=== PATIENT | female | born 1980 | race Caucasian/White ===

== ENCOUNTER 2016-09-01 19:45 | Emergency (ER) | payer MEDICAID ==
[~2016-09-01] VITALS: Ht 157.5 cm; Wt 66.5 kg
[~2016-09-01 19:45] MED LIST: CIPR500T4 PO; ONDA4TAB8 PO
[2016-09-01 19:48] VITALS: Ht 157.5 cm; Wt 66.5 kg
--- NOTE | 2016-09-01 21:24 | RADRPT ---
PROCEDURE: CT Brain without contrast. CLINICAL INDICATION: headache TECHNIQUE: A CT of the brain was performed on a GE J[employer]Cam 64-slice CT scanner utilizing axial imaging from the skull base through the vertex without IV contrast. Multiplanar reformatted images were made. Images were reviewed on a PACS workstation. The CTDIvol is 44 mGy and the DLP is 720 mG ycm. COMPARISON: None FINDINGS: There is no intracranial hemorrhage, mass effect, or midline shift. No extra-axial fluid collection is seen. The ventricles and sulci are normal in size and configuration. 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 Otherwise, the density of the brain is normal, and the mg white matter differentiation appears well-preserved. T he visualized paranasal sinuses and osseous structures are grossly unremarkable. IMPRESSION: No evidence of acute intracranial pathology. Physician Mel Date Time Electronically viewed and signed by Rodney Carlos Physician on 09/01/2016 21:24 ML/
[2016-09-01] MEDS ORDERED: BUTA1CAP39 PO (21:38)
--- NOTE | 2016-09-01 21:38 | ERD ---
ER Documentation Chief Complaint Date/Time DATE: 09/01/16 TIME: 21:35 Chief Complaint left sided facial pain w/ headache x 2 days HPI 36-year-old female presents to emergency department for complaints of left facial pain left sided headache, for 2 days. Patient described the pain as throbbing pain, 6/10 scale, has been better after taking Advil, worst upon seeing lights. Patient denies any nausea vomiting. Patient denies any numbness or tingling. Patient denies any blurry vision. ROS All systems reviewed and are negative except as per history of present illness. Medications Home Meds Active Scripts Eaeywzrwgbqfe-Hejmmpthas-Jzlzsiwa-Codeine* (Fioricet w/ Codeine*) [id number]- 30MG Capsule, 1 CAP PO Q6H Y for PAIN LEVEL 1-5, #20 CAP Prov:MELINA MANCINI RESIDENTIAL SUPERVISOR 09/01/16 Ondansetron Hcl* (Zofran*) 4 Mg Tablet, 4 MG PO Q6H for NAUSEA AND/OR VOMITING, #10 TAB Prov:WILLIAM MARTEL MD 11/16/15 Ciprofloxacin Hcl* (Ciprofloxacin Hcl*) 500 Mg Tablet, 500 MG PO BID for 3 Days , TAB Prov:WILLIAM MARTEL MD 11/16/15 Allergies Allergies: Coded Allergies: No Known Allergy (Unverified , 11/16/15) PMhx/Soc History of Surgery: No Hx Neurological Disorder: No Hx Respiratory Disorders: Yes (asthma) Hx Cardiac Disorders: No Hx Psychiatric Problems: No Hx Miscellaneous Medical Probl: No Hx Alcohol Use: No Hx Substance Use: No Hx Tobacco Use: No Smoking Status: Never smoker FmHx Family History: No coronary disease, No diabetes, No other Physical Exam Vitals Vital Signs Date Time Temp Pulse Resp B/P Pulse Ox O2 Delivery O2 Flow Rate FiO2 09/01/16 19:48 97.8 81 20 138/67 99 Physical Exam GENERAL: The patient is well developed and appropriate for usual state of health, in no apparent distress. CHEST: Clear to auscultation bilaterally. There are no rales, wheezes or rhonchi. HEART: Regular rate and rhythm. No murmurs, clicks, rubs or gallops. No S3 or S4. ABDOMEN: Soft, nontender and nondistended. Good bowel sounds. No rebound or guarding. No gross peritonitis. No gross organomegaly or masses. No Nazario sign or McBurney point tenderness. BACK: No midline or flank tenderness. EXTREMITIES: Equal pulses bilaterally. There is no peripheral clubbing, cyanosis or edema. No focal swelling or erythema. Full range of motion. Grossly neurovascularly intact. NEURO: Alert and oriented. Cranial nerves 2-12 intact. Motor strength in all 4 extremities with 5/5 strength. Sensation grossly intact. Normal speech and gait. Negative Romberg sign. Negative pronator drift. Bilateral eyes are PERRL EOM intact. SKIN: There is no apparent rash or petechia. The skin is warm and dry. HEMATOLOGIC AND LYMPHATIC: There is no evidence of excessive bruising or lymphedema. No gross cervical, axillary, or inguinal lymphadenopathy. Results 24 hrs Current Medications Medications (Trade) Dose Ordered Sig/Argenis Route PRN Reason Start Time Stop Time Status Last Admin Dose Admin Acetam/Butalbital/ Caffeine/Codeine (Fioricet/ Codeine) 1 cap ONCE ONCE PO 09/01/16 22:00 09/01/16 22:01 Patient was given medication for pain here in emergency department, after treatment, patient verbalized feeling much better. Patient's pain is improved. PROCEDURE: CT Brain without contrast. CLINICAL INDICATION: headache TECHNIQUE: A CT of the brain was performed on a [employer] 64-slice CT scanner utilizing axial imaging from the skull base through the vertex without IV contrast. Multiplanar reformatted images were made. Images were reviewed on a PACS workstation. The CTDIvol is 44 mGy and the DLP is 720 mGycm. COMPARISON: None FINDINGS: There is no intracranial hemorrhage, mass effect, or midline shift. No extra- axial fluid collection is seen. The ventricles and sulci are normal in size and configuration. 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 Otherwise, the density of the brain is normal, and the mg white matter differentiation appears well- preserved. The visualized paranasal sinuses and osseous structures are grossly unremarkable. IMPRESSION: No evidence of acute intracranial pathology. Rodney Lalezarian, Physician Date Time Electronically viewed and signed by Rodney Carlos Physician on 09/01/2016 21 :24 ML/ CC: MELINA MANCINI NP Procedures/MDM Medical Decision Making: Patient's symptoms of headache most likely is consistent with tension headache or migraine headache. There is low suspicion for neurological emergencies at this time since patients neurologic exam is normal. Patient did not have any altered level consciousness, vomiting, changes in balance or memory and did not have any head injury. Patients CT scan of the head does not show any neurological emergencies at this time. Patient was given for Fioricet with codeine, is advised to follow-up with primary care doctor in 1 -2 days for reevaluation and symptoms, see neurology specialist if symptoms continues to persist. Patient is advised to return to emergency department for any worsening symptoms. Departure Diagnosis: Primary Impression: Headache Headache type: unspecified Headache chronicity pattern: acute headache Intractability: not intractable Qualified Code: R51 - Acute nonintractable headache, unspecified headache type Condition: Stable Patient Instructions: Self-Care for Headaches Additional Instructions: Patient was given for Fioricet with codeine, is advised to follow-up with primary care doctor in 1-2 days for reevaluation and symptoms, see neurology specialist if symptoms continues to persist. Patient is advised to return to emergency department for any worsening symptoms. MELINA MANCINI NP September 01, 2016 21:38
[2016-09-01] MEDS ORDERED: ACET/BUTAL/CAFF/CODEINE CAP PO ONE (22:00)
== END 2016-09-01 22:37 | disposition home or self-care (01) ==
LOC: FTE 19:45
DX: R51 Headache (principal); J45.909 Unspecified asthma, uncomplicated
CPT/HCPCS: 70450; Z7610

== ENCOUNTER 2018-10-01 23:03 | Emergency (ER) | payer MEDICAID ==
[~2018-10-01] VITALS: Ht 165.1 cm; Wt 68.8 kg
[~2018-10-01 23:03] MED LIST changes: +BUTA1CAP39 PO
[2018-10-01 23:07] VITALS: BP 124/76; PULSE 84; RESP 18; Ht 165.1 cm; Wt 68.8 kg
[2018-10-02] MEDS ORDERED: IBUPROFEN 600 MG TAB PO ONE (00:30)
[2018-10-02] MEDS ORDERED: IBUP-1542 PO (02:43)
--- NOTE | 2018-10-02 02:45 | ERD ---
ER Documentation Chief Complaint Chief Complaint right upper abd pain, glf this am, hit right side against corner table HPI 38-year-old female presents with right lower rib pain after slipping and falling into the toilet this morning. She denies hemoptysis, head injury, neck pain, shortness of breath, abdominal pain, vomiting. ROS All systems reviewed and are negative except as per history of present illness. Medications Home Meds Active Scripts Ibuprofen* (Motrin*) 600 Mg Tab, 600 MG PO Q6, #20 TAB Prov:LUPIS NESS MD 10/02/18 Xysbrwbaotmgn-Ajegnasqci-Jwlgdaua-Codeine* (Fioricet w/ Codeine*) [id number] Capsule, 1 CAP PO Q6H PRN for PAIN LEVEL 1-5, #20 CAP Prov:MELINA MANCINI NP 09/01/16 Ondansetron Hcl* (Zofran*) 4 Mg Tablet, 4 MG PO Q6H for NAUSEA AND/OR VOMITING, #10 TAB Prov:WILLIAM MARTEL MD 11/16/15 Ciprofloxacin Hcl* (Ciprofloxacin Hcl*) 500 Mg Tablet, 500 MG PO BID for 3 Days, TAB Prov:WILLIAM MARTEL MD 11/16/15 Allergies Allergies: Coded Allergies: No Known Allergy (Unverified , 11/16/15) PMhx/Soc Medical and Surgical Hx: pt denies Surgical Hx History of Surgery: No Hx Neurological Disorder: No Hx Respiratory Disorders: Yes (asthma) Hx Cardiac Disorders: No Hx Psychiatric Problems: No Hx Miscellaneous Medical Probl: No Hx Alcohol Use: No Hx Substance Use: No Hx Tobacco Use: No Smoking Status: Never smoker FmHx Family History: No diabetes, No coronary disease, No other Physical Exam Vitals Vital Signs Date Temp Pulse Resp B/P (MAP) Pulse Ox O2 O2 Flow FiO2 Time Delivery Rate 10/01/18 97.6 84 18 124/76 99 23:07 (92) Physical Exam Const: No acute distress Head: Atraumatic Eyes: Normal Conjunctiva ENT: Normal External Ears, Nose and Mouth. Neck: Full range of motion. No meningismus. Resp: Clear to auscultation bilaterally Cardio: Regular rate and rhythm, no murmurs. Tender right approximately T10 rib. No crepitance or deformities. No abdominal tenderness. Abd: Soft, non tender, non distended. Normal bowel sounds Skin: No petechiae or rashes Back: No midline or flank tenderness Ext: No cyanosis, or edema Neur: Awake and alert Psych: Normal Mood and Affect Results 24 hrs Laboratory Tests Test 10/02/18 01:08 Bedside Urine pH (LAB) 5.5 Bedside Urine Protein (LAB) Negative Bedside Urine Glucose (UA) Negative Bedside Urine Ketones (LAB) Negative Bedside Urine Blood 1+ Bedside Urine Nitrite (LAB) Negative Bedside Urine Leukocyte Esterase (L Negative POC Beta HCG, Qualitative NEGATIVE Current Medications Medications Dose Sig/Argenis Start Time Status Last (Trade) Ordered Route PRN Stop Time Admin Dose Reason Admin Ibuprofen 600 mg ONCE ONCE 10/02/18 DC 10/02/18 (Motrin) PO 00:30 10/02/18 00:36 00:32 Procedures/MDM X-ray right ribs 2V Interpreted by me: Soft Tissue: No acute abnormalities Bones: No acute abnormalities Mediastinum/Cardiac Silhouette/Lungs:No acute abnormalities. Impression-normal right rib x-ray Signs and symptoms of right rib contusion without signs of fracture, abdominal pain, hemoptysis, hypoxemia, head injury, neck injury. She will be treated with ibuprofen, further observation at home and return precautions. The patient was stable with no new complaints during the ER course. Clinically, there is no cu rrent evidence to suggest meningitis, sepsis, acute abdomen, pneumonia, stroke, acute coronary syndrome, pulmonary embolism, aortic dissection or any other emergent condition appearing to require further evaluation or hospitalization. Patient counseled regarding my diagnostic impression and care plan. Prior to discharge all questions answered. Pt agrees with treatment plan and understands strict return precautions. Pt is instructed to follow up with primary care provider within 24-48 hours. Precautionary instructions provided including instructions to return to the ER if not improving or for any worsening or changing symptoms or concerns. Disclaimer: Inadvertent spelling and grammatical errors are likely due to EHR/dictation software use and do not reflect on the overall quality of patient care. Also, please note that the electronic time recorded on this note does not necessarily reflect the actual time of the patient encounter. Departure Diagnosis: Primary Impression: Rib contusion Encounter type: initial encounter Laterality: right Qualified Codes: S20.211A - Contusion of right front wall of thorax, initial encounter Condition: Stable Patient Instructions: Rib Contusion Referrals: NO PRIMARY,CARE PHYSICIAN (PCP) Additional Instructions: Examines normal hoy. Cheque otro vez con ly doctor primario en el proximo ontiveros or regresa para mas o nueva simptomas. LUPIS NESS MD Oct 02, 2018 02:45
== END 2018-10-02 03:03 | disposition home or self-care (01) ==
LOC: FTE 23:03
DX: S20.211A Contusion of right front wall of thorax, initial encounter (principal); J45.909 Unspecified asthma, uncomplicated; W22.03XA Walked into furniture, initial encounter
CPT/HCPCS: 71100; 81003; 81025; Z7502; Z7610